=== PATIENT | female | born 1960 | race Caucasian/White ===

== ENCOUNTER 2019-06-11 15:48 | Emergency (ER) | payer OTHER, SELFPAY ==
[2019-06-11 15:51] VITALS: BP 182/96; PULSE 72; RESP 18; TEMP 36.7; O2SAT 99; BMI 30.7
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
[2019-06-11 18:03] VITALS: BP 138/68; PULSE 65; RESP 16; TEMP 36.6; O2SAT 97
== END 2019-06-11 18:05 | disposition home or self-care (01) ==
PROVIDERS: Emergency Provider Physician Assistant; PCP Family Medicine
DX: R51 Headache (principal); F17.200 Nicotine dependence, unspecified, uncomplicated; Y04.2XXA Assault by strike against or bumped into by another person, initial encounter; Y92.239 Unspecified place in hospital as the place of occurrence of the external cause
CPT/HCPCS: 12345; 70150; 99281; 99282